=== PATIENT | male | born 1950 | race American Indian/Alaskan Native ===

== ENCOUNTER 2020-10-08 08:11 | Day surgery (SDC) | payer MEDICARE, OTHER ==
[2020-10-08 09:22] LABS: Basophils % (Auto) 0.6 % (0.0-1.8); Eosinophils # (Auto) 0.1 K/mm3 (0.0-0.4); Eosinophils % (Auto) 1.7 % (0.0-4.3); Hematocrit 26.4 % (35.5-45.6); Hemoglobin 8.9 gm/dl (11.8-15.2); Lymphocytes # (Auto) 1.1 K/mm3 (1.2-5.4); Lymphocytes % (Auto) 17.3 % (13.4-35.0); Mean Corpuscular HGB Conc 34 % (32-34); Mean Corpuscular Volume 90 fl (84-94); Monocytes # (Auto) 0.9 K/mm3 (0.0-0.8); Monocytes % (Auto) 13.9 % (0.0-7.3); Platelet Count 277 K/mm3 (140-440); Red Blood Count 2.94 M/mm3 (3.65-5.03); Red Cell Distribution Width 19.8 % (13.2-15.2)
[2020-10-08 09:43] LABS: Blood Urea Nitrogen 9 mg/dL (9-20); Calcium 9.5 mg/dL (8.4-10.2); Hemolysis Index 9
[2020-10-08 09:44] LABS: BUN/Creatinine Ratio 13
[2020-10-08 09:46] LABS: INR 1.08 (0.87-1.13)
[2020-10-08 09:53] LABS: Partial Thromboplastin Time 29.4 Sec. (24.2-36.6)
[2020-10-08] MEDS ORDERED: SODIUM CHLORIDE 0.9% 500 ML 500 ML IV SCH (10:00)
[2020-10-08] MEDS ORDERED: HYDROcodone/ACETAMINOPHEN 5-325 MG TAB PO PRN (12:00)
[2020-10-08] MEDS ORDERED: HEPARIN/NS 5000 UNIT/500ML 1,000 ML IR ONE (14:39)
[2020-10-08] MEDS ORDERED: LIDOCAINE (2%) 20 MG/1 ML VIAL 20 ML MDV INFILTRATI ONE (14:39)
[2020-10-08] MEDS ORDERED: SODIUM CHLORIDE 0.9% 1000 ML 1,000 ML ONE ×2 (14:41→16:07)
[2020-10-08] MEDS ORDERED: ceFAZolin/Water 2 GM/20 ML 2 GM/20 ML SYRINGE IV ONE (14:54)
[2020-10-08] MEDS: fentaNYL 100 MCG/2 ML INJ ONE ×4 (15:08→17:20)
[2020-10-08] MEDS: MIDAZOLAM 2 MG/2 ML INJ ONE ×4 (15:09→17:20)
[2020-10-08] MEDS ORDERED: HEPARIN 10,000 UNITS/10 ML VIAL ONE (16:02)
[2020-10-08] MEDS ORDERED: NITROGLYCERIN DRIP 50 MG/250 ML BOTTLE ONE (16:10)
[2020-10-08] MEDS ORDERED: VERAPAMIL 5 MG/2 ML INJ ONE (16:10)
--- NOTE | 2020-10-08 18:43 | Short Stay Summary ---
Short Stay Documentation Date of service: 10/08/20 Narrative H&P: See H&P - History H&P: obtained from office - Allergies and Medications Current Medications: Allergies No Known Allergies Allergy (Unverified 02/13/13 11:04) Home Medications Medication Instructions Recorded Confirmed Last Taken Type Eliquis 5 mg PO BID 10/08/20 10/08/20 10/08/20 07:00 History 5 mg Metoprolol Xl [Metoprolol 25 mg PO DAILY 10/08/20 10/08/20 10/08/20 06:30 History SUCCINATE ER TAB] Omeprazole 40 mg PO PRN 10/08/20 10/08/20 10/08/20 07:00 History Ondansetron 4 mg PO PRN 10/08/20 10/08/20 Unknown History Pravastatin 40 mg PO ONCE 10/08/20 10/08/20 10/07/20 08:00 History Proair Respiclick 90 mcg INHALATION PRN 10/08/20 10/08/20 Unknown History Tiotropium [place] [Spiriva] 1 cap INHALATION DAILY 10/08/20 10/08/20 10/07/20 12:00 History 18 mcg Tiotropium [place] [Spiriva] 18 mcg INHALATION NOW 10/08/20 10/08/20 10/07/20 12:00 History 18 mcg Active Medications Hydrocodone Bitart/Acetaminophen (Hydrocodone/Acetaminophen 5-325 Mg Tab) 1 each PO Q6H PRN PRN Reason: Pain, Moderate (4-6) Last Admin: 10/08/20 12:10 Dose: 1 each Documented by: Sodium Chloride (Nacl 0.9% 500 Ml) 500 mls @ 50 mls/hr IV DIRECT EUGENE - Brief post op/procedure progress note Date of procedure: 10/08/20 Pre-op diagnosis: PVD with Bilateral Lower Extremity Claudication Post-op diagnosis: same Procedure: 1. Ultrasound-Guided Access Left Common Femoral Artery 2. Diagnostic Aortogram (No Previous Films for Comparison) 3. Diagnostic Right Lower Extremity Angiogram (No Previous Films for Comparison) 4. Atherectomy with Angioplasty Of Right Tibioperoneal Trunk With CSI Diamondback 1.5 Solid Orbital Atherectomy Catheter and 5 x 80 IN.PACT Drug- Coated Balloon 5. Atherectomy With Angioplasty and Stent Of SFA and Popliteal Artery with CSI Diamond[place] 1.5 Solid Orbital Atherectomy Catheter, 7 x 60 Shockwave Lithotripsy Balloon, 6 x 250 and 6 x 150 IN.PACT Drug-Coated Balloons, and 7 x 150 EverFlex Self-Expanding Stent 6. Angioplasty and Stent of Right External Iliac Artery with 8 x 5 Viabahn Stent Graft And 8 x 40 [place] Balloon 7. Closure of Left Femoral Arteriotomy with Pro-[place] Closure Device 8. Radiologic Supervision with Interpretation 9. Monitored Moderate Sedation (Total Anesthesia Time: 186 Minutes) Anesthesia: local, other (Monitored moderate sedation) Surgeon: SHARI DELGADILLO Estimated blood loss: minimal Pathology: none Condition: stable - Disposition Condition at discharge: Good Disposition: [id number] TO HOME OR SELFCARE Short Stay Discharge Plan Activity: other (No strenuous activity for 24 hours) Wound: remove dressing (In 24 hours), other (After removing the dressing it is okay to shower and wash the wound with soap and water but do not soak in water for 2 weeks.) Follow up with: SHARI DELGADILLO MD [Staff Physician] - 14 Days Prescriptions: HYDROcodone/APAP 5-325 [[place] 5/325] 1 each PO Q4HR PRN #30 tablet PRN Reason: Pain Clopidogrel [Plavix] 75 mg PO QDAY #90 tablet
--- NOTE | 2020-10-08 19:02 | Operative Report ---
Operative Report Operative Report: Date of Procedure: 10/08/2020 Pre-operative Diagnosis: PVD with Bilateral Lower Extremity Claudication Post-operative Diagnosis: Same Procedure(s): 1. Ultrasound-Guided Access Left Common Femoral Artery 2. Diagnostic Aortogram (No Previous Films for Comparison) 3. Diagnostic Right Lower Extremity Angiogram (No Previous Films for Comparison) 4. Atherectomy with Angioplasty Of Right Tibioperoneal Trunk With CSI Diamondback 1.5 Solid Orbital Atherectomy Catheter and 5 x 80 IN.PACT Drug- Coated Balloon 5. Atherectomy With Angioplasty and Stent Of SFA and Popliteal Artery with CSI Diamond[place] 1.5 Solid Orbital Atherectomy Catheter, 7 x 60 Shockwave Lithotripsy Balloon, 6 x 250 and 6 x 150 IN.PACT Drug-Coated Balloons, and 7 x 150 EverFlex Self-Expanding Stent 6. Angioplasty and Stent of Right External Iliac Artery with 8 x 5 Viabahn Stent Graft And 8 x 40 [place] Balloon 7. Closure of Left Femoral Arteriotomy with Pro-[place] Closure Device 8. Radiologic Supervision with Interpretation 9. Monitored Moderate Sedation (Total Anesthesia Time: 186 Minutes) Surgeon: Ayan Valdes M.D. Picture Copyist: Betzy Anesthesia: Monitored Moderate Sedation Total Anesthesia Time: 186 Minutes EBL: Minimal Counts: Correct Complications: None Condition: Stable Specimen: None Indication: The patient is a 70-year-old male with a history of peripheral vascular disease who presented with complaints of bilateral lower extremity claudication. He had a CTA that suggested iliac as well as SFA and popliteal artery stenosis and occlusive disease. He is in need of a diagnostic angiogram with possible intervention. He was given the risk, benefits, and alternative procedures and consented to the procedure. Angiographic Findings: The diagnostic aortogram demonstrated that the aorta was calcified but patent without evidence of aneurysmal dilatation or flow-limiting stenosis. Bilateral common iliac arteries were patent without evidence of aneurysmal dilatation or flow-limiting stenosis. The right lower extremity angiogram revealed that the right hypogastric artery appeared to be patent without evidence of significant flow-limiting stenosis. The external iliac artery was heavily calcified with a short segment lesion in the proximal artery with approximately 60% stenosis. The remainder of the external iliac artery appeared patent without evidence of flow-limiting stenosis. There was approximately 50% stenosis in a short segment of the common femoral artery. The profunda artery. Patent without evidence of flow-limiting stenosis. The SFA was heavily calcified and diffusely diseased with 50 to 75% stenosis within the proximal artery and occlusion of the mid artery. There was reconstitution in a heavily calcified and diseased distal SFA with 75% stenosis. The proximal popliteal artery was heavily calcified with approximate 50 to 60% stenosis. There was a short heavily calcified lesion in the distal popliteal artery with approximately 60% stenosis. The anterior tibial artery was atretic and occluded in the mid calf. There was approximately 60% stenosis in the tibioperoneal trunk. The peroneal artery appeared patent without significant flow-limiting stenosis. The posterior tibial artery was patent throughout its course with a short segment stenosis in the distal artery of approximately 50% and was the dominant flow into the foot. After intervention the external iliac artery was patent with less than 10% residual stenosis. The common femoral artery was patent with less than 15% residual stenosis. The SFA was patent with approximately 15% residual stenosis. The popliteal artery was patent with less than 10% residual stenosis. The tibioperoneal trunk was patent with less than 10% residual stenosis. Description of Procedure: The patient was brought to the Technology Teacher and laid in supine position. After timeout was performed his left groin was prepped and draped in normal sterile fashion. Ultrasound was used to identify the left common femoral artery and confirm patency. Once patency was confirmed the overlying skin and soft tissue was anesthetized with lidocaine. An 11 blade was used to make a small stab incision and then a curved hemostat was used ultrasound guidance to bluntly dissect down to the anterior surface of the left common femoral artery. A 21- gauge micropuncture needle was used with ultrasound guidance in the left common femoral artery and a 0.018 micropuncture wire was advanced to the artery. The needle was removed and exchanged for a micropuncture sheath by Seldinger technique. The wire and dilator were removed and a 0.035 Bentson wire was advanced to the aorta. The micropuncture sheath was exchanged for 5 Armenian bautista th by Seldinger technique. An Omni Flush catheter was advanced into the aorta and after removing the wire a diagnostic aortogram was performed with the previously described findings. The Bentson wire was reinserted and the wire and catheter were advanced up and over the bifurcation and the right lower extremity angiogram was performed with the previously described findings. At this point the decision was made to intervene. A 0.035 glide advantage wire was advanced into the SFA and the 5 Armenian sheath was exchanged for a 7 Armenian 45 cm destination sheath by Seldinger technique. At this point the patient was systemically heparinized with 6000 units of heparin IV and this was redosed with 1000 units of heparin IV every 45 minutes into the completion of the case. I used a combination of wires and catheters but eventually was able to cross the lesion using a Navicross catheter and the advantage wire. This was confirmed with angiogram. I advanced the catheter and wire into the posterior tibial artery and exchanged the wire for a 0.014 Viper wire. I then performed atherectomy of the tibioperoneal trunk, popliteal artery, SFA, and common femoral artery using a FotoSwipe Diamondback 1.5 Solid Orbital Atherectomy Catheter. I then used a 7 x 60 Shockwave Lithotripsy Balloon to treat the most heavily calcified areas, including the common femoral artery, and was able to bring the balloon to profile with only 2 bharati of pressure. I then performed angioplasty of the tibioperoneal trunk with a 5 x 80 IN.PACT Drug-Coated Balloon with a result of less than 10% residual stenosis. I performed angioplasty of the popliteal artery and SFA with a 6 x 250 and a 6 x 150 IN.PACT drug-coated balloons. This resulted in less than 10% residual stenosis within the popliteal artery and approximately 30% residual stenosis within the mid SFA secondary to a dissection. I treated this with a 7 x 150 EverFlex self-expanding stent that was postdilated with a 7 x 150 [place] Balloon which resulted in approximately 15% residual stenosis. The remainder the SFA had less than 15% residual stenosis. The common femoral artery had less than 10% residual stenosis a result of treatment with the Shockwave Lithotripsy Balloon. I then pulled the sheath back into the external iliac artery and performed an angiogram demonstrated the previously described lesion. I advanced an 8 x 5 Viabahn Stent Graft across the area of stenosis and performed angioplasty with an 8 x 40 [place] Balloon resulted in less than 10% residual stenosis and brisk flow of contrast into the lower extremity. I removed the Viper wire and pulled the sheath back into the right external iliac artery. I advanced the Bentson wire into the aorta and then used a Pro-glide closure device to close the left femoral arteriotomy. A sterile dressing was then applied to the entry site and the patient was transported to the recovery area in stable condition.
[2020-10-08 19:16] VITALS: BP 153/72
[2020-10-08] MEDS ORDERED: CLOPIDOGREL 300 MG TAB PO ONE (19:30)
== END 2020-10-08 19:40 | disposition home or self-care (01) ==
LOC: CATHLABREC 08:11
PROVIDERS: ATTEND Surgery Vascular Surgery
DX: I70.223 Atherosclerosis of native arteries of extremities with rest pain, bilateral legs (principal); I70.213 Atherosclerosis of native arteries of extremities with intermittent claudication, bilateral legs; I48.91 Unspecified atrial fibrillation; I10 Essential (primary) hypertension; F17.210 Nicotine dependence, cigarettes, uncomplicated; Z79.899 Other long term (current) drug therapy; Z98.890 Other specified postprocedural states
CPT/HCPCS: 36415; 37221; 37227; 37229; 75625; 75710; 76937; 80048; 85025; 85610; 85730; 99156; 99157; C1724; C1725; C1760; C1769; C1874; C1876; C1887; C2623; J0690; J1644; J2250; J3010; J7030; Q9967

== ENCOUNTER 2020-10-29 08:32 | Day surgery (SDC) | payer MEDICARE, OTHER ==
[2020-10-29 09:55] LABS: Hemoglobin 8.7 gm/dl (11.8-15.2); Mean Corpuscular HGB Conc 33 % (32-34); Mean Corpuscular Volume 92 fl (84-94); Platelet Count 299 K/mm3 (140-440); Red Blood Count 2.83 M/mm3 (3.65-5.03)
[2020-10-29] MEDS ORDERED: SODIUM CHLORIDE 0.9% 500 ML 500 ML IV SCH (10:00)
[2020-10-29 10:08] LABS: Blood Urea Nitrogen 10 mg/dL (9-20); Calcium 9.4 mg/dL (8.4-10.2); Hemolysis Index 15
[2020-10-29 10:11] LABS: BUN/Creatinine Ratio 17
[2020-10-29 10:17] VITALS: BP 106/74
[2020-10-29 10:39] LABS: INR 1.03 (0.87-1.13)
[2020-10-29] MEDS ORDERED: ceFAZolin/Water 2 GM/20 ML 0 GM/0 ML SYRINGE IV ONE (11:06)
[2020-10-29] MEDS ORDERED: HEPARIN/NS 5000 UNIT/500ML 500 ML IR ONE (11:06)
[2020-10-29] MEDS ORDERED: LIDOCAINE 1%/EPINEPHRINE 1:100,000 VIAL (20 ML) INFILTRATI ONE (11:06)
[2020-10-29] MEDS ORDERED: HEPARIN 10,000 UNITS/10 ML VIAL ONE (11:06)
== END 2020-10-29 12:05 | disposition home or self-care (01) ==
LOC: CATHLABREC 08:32
PROVIDERS: ATTEND Surgery Vascular Surgery
DX: I70.213 Atherosclerosis of native arteries of extremities with intermittent claudication, bilateral legs (principal); Z53.8 Procedure and treatment not carried out for other reasons; I10 Essential (primary) hypertension; E78.00 Pure hypercholesterolemia, unspecified; I48.91 Unspecified atrial fibrillation; F32.9 Major depressive disorder, single episode, unspecified; F17.210 Nicotine dependence, cigarettes, uncomplicated; Z79.899 Other long term (current) drug therapy; Z98.890 Other specified postprocedural states
CPT/HCPCS: 36415; 80048; 85027; 85610; J1644; J7040; 99152; J0690

== ENCOUNTER 2020-10-31 06:48 | Day surgery (SDC) | payer MEDICARE ==
[2020-10-31] MEDS ORDERED: SODIUM CHLORIDE 0.9% 500 ML 500 ML IV SCH (07:30)
[2020-10-31] MEDS ORDERED: HEPARIN/NS 5000 UNIT/500ML 1,000 ML IR ONE (08:09)
[2020-10-31] MEDS ORDERED: ceFAZolin/Water 2 GM/20 ML 2 GM/20 ML SYRINGE IV ONE (08:35)
[2020-10-31] MEDS: LIDOCAINE (2%) 20 MG/1 ML VIAL 20 ML MDV INFILTRATI ONE ×2 (08:45→08:52)
[2020-10-31] MEDS: MIDAZOLAM 2 MG/2 ML INJ ONE ×3 (08:45→09:45)
[2020-10-31] MEDS: fentaNYL 100 MCG/2 ML INJ ONE ×5 (08:45→10:43)
[2020-10-31] MEDS: HEPARIN 10,000 UNITS/10 ML VIAL ONE ×2 (09:08→09:55)
[2020-10-31] MEDS ORDERED: SODIUM CHLORIDE 0.9% 1000 ML 1,000 ML ONE (09:15)
[2020-10-31] MEDS ORDERED: NITROGLYCERIN SYRINGE 6 ML ONE (09:47)
[2020-10-31] MEDS ORDERED: MIDAZOLAM 2 MG/2 ML INJ ONE (09:52)
[2020-10-31] MEDS ORDERED: SODIUM CHLORIDE 0.9% 500 ML 500 ML ONE (09:55)
--- NOTE | 2020-10-31 10:57 | Short Stay Summary ---
Short Stay Documentation Date of service: 10/31/20 Narrative H&P: See Short Stay Record - Allergies and Medications Current Medications: Allergies No Known Allergies Allergy (Verified 10/31/20 06:53) Home Medications Medication Instructions Recorded Confirmed Last Taken Type Clopidogrel [Plavix] 75 mg PO QDAY #90 tablet 10/08/20 10/31/20 10/30/20 Rx Eliquis 5 mg PO BID 10/08/20 10/31/20 10/26/20 History HYDROcodone/APAP 5-325 [[place] 1 each PO Q4HR PRN #30 tablet 10/08/20 10/31/20 10/30/20 Rx 5/325] Metoprolol Xl [Metoprolol 25 mg PO DAILY 10/08/20 10/31/20 10/31/20 History SUCCINATE ER TAB] Omeprazole 40 mg PO DAILY 10/08/20 10/31/20 10/28/20 History Ondansetron 4 mg PO PRN 10/08/20 10/31/20 10/30/20 History Pravastatin 40 mg PO HS 10/08/20 10/31/20 10/30/20 History Proair Respiclick 90 mcg INHALATION PRN 10/08/20 10/31/20 10/30/20 History Tiotropium [place] [Spiriva] 1 cap INHALATION DAILY 10/08/20 10/31/20 10/31/20 History Active Medications Sodium Chloride (Nacl 0.9% 500 Ml) 500 mls @ 50 mls/hr IV DIRECT EUGENE Last Admin: 10/31/20 08:08 Dose: 50 mls/hr Documented by: - Brief post op/procedure progress note Date of procedure: 10/31/20 Pre-op diagnosis: PVD with Left Lower Extremity Claudication Post-op diagnosis: same Procedure: 1. Ultrasound-Guided Access Right Common Femoral Artery 2. Diagnostic Left Lower Extremity Angiogram 3. Atherectomy with Angioplasty of the Left Posterior Tibial Artery with 2.4/3.4 Jetstream Atherectomy Catheter, 4.0 x 150 IN.PACT Drug-Coated Balloon in the Proximal Posterior Tibial Artery, and 3.0 x 220 Huan Balloon in the Distal Artery 4. Atherectomy with Angioplasty of the Left SFA and Popliteal Artery with 2.4/3.4 Jetstream Atherectomy Catheter, 6.0 x 150 IN.PACT Drug-Coated Balloons (x4), and 7.0 x 80 IN.PACT Drug-Coated Balloon in the Common Femoral Artery 5. Angioplasty and Stent of the Proximal Left External Iliac Artery with 8 x 29 Viabahn VBX Balloon Expandable Stent Graft 6. Secondary Catheter Directed Aspiration of Left Posterior Tibial Artery with 7 Portuguese [place] Aspiration Catheter 7. Closure of Right Femoral Arteriotomy with Pro-[place] Closure Device 8. Radiologic Supervision with Interpretation 9. Monitored Moderate Sedation (Total Anesthesia Time: 110 Minutes) Anesthesia: local, other (Monitored Moderate Sedation) Surgeon: SHARI DELGADILLO Estimated blood loss: minimal Pathology: none Condition: stable - Disposition Condition at discharge: Good Disposition: 01 HOME / SELF CARE / HOMELESS Short Stay Discharge Plan Activity: other (No strenuous activity for 24 hours) Wound: remove dressing (Okay to remove the right groin dressing in 24 hours), other (Okay to shower and wash the wound with soap and water but do not soak in water for 2 weeks.) Follow up with: SHARI DELGADILLO MD [Staff Physician] - 14 Days Prescriptions: oxyCODONE /ACETAMINOPHEN [Percocet 5/325] 1 tab PO Q6HR PRN #30 tablet PRN Reason: Pain
--- NOTE | 2020-10-31 11:22 | Operative Report ---
Operative Report Operative Report: Date of Procedure: 10/31/2020 Pre-operative Diagnosis: Peripheral Vascular Disease with Left Lower Extremity C laudication Post-operative Diagnosis: Same Procedure(s): 1. Ultrasound-Guided Access Right Common Femoral Artery 2. Diagnostic Left Lower Extremity Angiogram 3. Atherectomy with Angioplasty of the Left Posterior Tibial Artery with 2.4/3.4 Jetstream Atherectomy Catheter, 4.0 x 150 IN.PACT Drug-Coated Balloon in the Proximal Posterior Tibial Artery, and 3.0 x 220 Huan Balloon in the Distal Artery 4. Atherectomy with Angioplasty of the Left SFA and Popliteal Artery with 2.4/3.4 Jetstream Atherectomy Catheter, 6.0 x 150 IN.PACT Drug-Coated Balloons (x4), and 7.0 x 80 IN.PACT Drug-Coated Balloon in the Common Femoral Artery 5. Angioplasty and Stent of the Proximal Left External Iliac Artery with 8 x 29 Viabahn VBX Balloon Expandable Stent Graft 6. Secondary Catheter Directed Aspiration of Left Posterior Tibial Artery with 7 Israeli [place] Aspiration Catheter 7. Closure of Right Femoral Arteriotomy with Pro-[place] Closure Device 8. Radiologic Supervision with Interpretation 9. Monitored Moderate Sedation (Total Anesthesia Time: 110 Minutes) Surgeon: Ayan Valdes M.D. Correctional Supply Supervisor: None Anesthesia: Local/Monitored Moderate Sedation Total Anesthesia Time: 110 Minutes EBL: Minimal Counts: Correct Complications: None Condition: Stable Specimen: None Indication: The patient is a 70-year-old male with a history of tobacco abuse and peripheral vascular disease who had bilateral lower extremity claudication. He has had intervention on his right lower extremity and now requires an angiogram and possible intervention of his left lower extremity. He was given the risk, benefits, and alternative procedures and consented to the procedure. Angiographic Findings: The diagnostic left lower extremity angiogram revealed approximately 20% stenosis of the left common iliac artery. There was approximately 70% stenosis of the origin of the hypogastric artery and approximately 60% stenosis of the proximal external iliac artery. The remainder the external iliac artery was patent without significant flow-limiting stenosis. There was 50% stenosis in the common femoral artery. The profunda artery appeared to be patent without significant flow-limiting stenosis. The SFA was diffusely disease with 50 to 75% stenosis in the proximal and mid portion and had to short segments in the distal portion with near total occlusion. The popliteal artery was diffusely diseased with 50 to 85% stenosis in the above-knee popliteal segment and approximately 70% stenosis in the below-knee popliteal segment just proximal to the trifurcation. There was no tibial peroneal trunk and all tibial vessels originated from the popliteal artery. The anterior tibial artery has 75% stenosis at its origin and occluded in the mid calf. The peroneal artery had approximately 40% stenosis in a short segment at the origin but appeared to be patent the remainder of its course and reconstituted the dorsalis pedis artery through collaterals at the ankle. The posterior tibial artery was a dominant flow into the foot however there was approximately 60% stenosis in a long segment of the proximal artery and the remainder the artery appeared patent without significant flow-limiting stenosis. At the completion of the procedure the external iliac artery was patent with less than 10% residual stenosis. The common femoral artery, SFA, and popliteal artery were all patent with less than 15% residual stenosis. The posterior tibial artery was patent with less than 15% residual stenosis and minimal distal debris noted at the completion of the case with brisk flow of contrast into the foot. Description of Procedure: The patient was brought to the [employer] and laid in supine position. After a timeout was performed his right groin was prepped and draped in normal sterile fashion. Ultrasound was used to identify the right common femoral artery and confirm patency. Once patency was confirmed the overlying skin and soft tissue was anesthetized with lidocaine. An 11 blade was used to make a small stab incision and then a curved hemostat was used to bluntly dissect down to the anterior surface of the right common femoral artery. A 21-gauge micropuncture needle was used with ultrasound guidance to enter the right common femoral artery and a 0.018 micropuncture wire was advanced to the artery. The micropuncture needle was then removed and a micropuncture sheath was placed by Seldinger technique. The inner dilator and wire were removed and the 0.035 Bentson wire was advanced into the aorta. The micropuncture sheath was exchanged for 5 Israeli sheath by Seldinger technique. An Omni Flush catheter was advanced into the aorta and the catheter and wire were advanced over the bifurcation and a left lower extremity angiogram was performed the previous described findings. Given the findings and the patient's clinical scenario the decision was made to intervene. I advanced a Bentson wire into the proximal SFA and then exchanged the 5 Israeli sheath for a 7 Israeli 45 cm destination sheath by Seldinger technique. At this point the patient was systemically heparinized with 6000 units of heparin IV and this was redosed with 1000 units of heparin IV at 45 minutes. I then used a Navicross catheter with a 0.018 V18 Wire and was able to traverse the areas of stenosis within the SFA, popliteal artery, and posterior tibial artery and advanced the catheter and wire into the distal posterior tibial artery which was confirmed by angiogram. I exchanged the V 18 wire for a 0.014 Thruway Wire. I then performed atherectomy of the left common femoral artery, SFA, and popliteal artery with both blades down and blades up. I performed atherectomy of the proximal one third of the posterior tibial artery with blades down only. I advanced the Navicross catheter over the wire and exchanged it for the Bentson wire. I then performed angioplasty of the proximal posterior tibial artery with a 4.0 x 150 IN.PACT Drug-Coated Balloon with a result of less than 15% residual stenosis however there was sluggish flow within the artery. Angiogram of the distal outflow revealed distal emboli within the artery. I advanced the Navicross catheter into the artery and then advanced a 0.014 Choice PT wire past the distal emboli and into the foot. I then injected 600 mcg of nitroglycerin into the artery to break spasm within the artery. I performed angioplasty of the artery with a 3.0 x 220 Huan Balloon which resulted in less than 15% residual stenosis. This then allowed me to advance a 7 Israeli [place] Aspiration Catheter into the distal artery and aspirated debris resulted in minimal residual debris and brisk flow of contrast through the artery and into the foot. I reinserted the Navicross catheter and exchanged the Choice PT wire for the Bentson wire.. I then performed angioplasty of the popliteal artery and SFA using a total of four 6.0 x 150 IN.PACT Drug-Coated Balloons with a result of less than 15% residual stenosis. Upper wire and angioplasty of the common femoral artery using a 7.0 x 80 IN.PACT drug-coated balloon with a result of less than 15% residual stenosis. I pulled the sheath back into the left common iliac artery and performed an angiogram identifying the stenosis in the proximal left external iliac artery. I advanced an 8 x 29 Viabahn VBX Balloon Expandable Stent Graft into position and deployed it. I used a 10 x 40 EverCross Balloon to flowered the proximal portion of the stent graft which extended into the common iliac artery. I performed an angiogram which revealed less than 10% residual stenosis and brisk flow of contrast. I removed the delivery catheter and pulled the sheath back into the right external iliac artery and advanced the Bentson wire to the aorta. I then used a Pro- glide closure device to close the right femoral arteriotomy and dressed the groin entry site with a sterile dressing. The patient tolerated the procedure well was transported to the recovery area in stable condition.
[2020-10-31] MEDS ORDERED: oxyCODONE /ACETAMINOPHEN 5-325MG TAB PO PRN (11:30)
[2020-10-31 16:33] VITALS: BP 150/79
== END 2020-10-31 12:00 | disposition home or self-care (01) ==
LOC: CATHLABREC 06:48
PROVIDERS: ATTEND Surgery Vascular Surgery
DX: I70.213 Atherosclerosis of native arteries of extremities with intermittent claudication, bilateral legs (principal); I10 Essential (primary) hypertension; E78.00 Pure hypercholesterolemia, unspecified; I48.91 Unspecified atrial fibrillation; F17.210 Nicotine dependence, cigarettes, uncomplicated; Z79.899 Other long term (current) drug therapy; Z98.890 Other specified postprocedural states
CPT/HCPCS: 37221; 37225; 37229; 75710; 76937; 99156; 99157; C1724; C1725; C1757; C1760; C1769; C1874; C1887; C2623; J0690; J1644; J2250; J3010; J7030; J7040; Q9967